=== PATIENT | female | born 1990 | race Caucasian/White ===

== ENCOUNTER 2016-06-27 05:54 | Inpatient (IN) | payer BC ==
[~2016-06-27] VITALS: Ht 154.9 cm; Wt 100.7 kg
[2016-06-27 09:33] LABS: HEMOGLOBIN 12.8 gm/dl (12.3-15.3); RED BLOOD COUNT 4.07 M/UL (4.00-5.10); WHITE BLOOD COUNT 10.7 K/UL (4.5-11.0)
[2016-06-28 03:15] LABS: HEMOGLOBIN 11.3 gm/dl (12.3-15.3)
[2016-06-29] MEDS ORDERED: COLACE 100MG C100 MG PO (15:11)
== END 2016-06-29 15:11 | disposition home or self-care (01) | DRG 766 ==
LOC: GENOP 05:54 → OB 09:09
PROVIDERS: Obstetrics & Gynecology; ADMIT Obstetrics & Gynecology
PROC: 10D00Z1 Extraction of Products of Conception, Low, Open Approach (ICD-10-PCS; principal; 2016-06-27 14:04)
PROC: 3E0234Z Introduction of Serum, Toxoid and Vaccine into Muscle, Percutaneous Approach (ICD-10-PCS; 2016-06-28)
DX: O76 Abnormality in fetal heart rate and rhythm complicating labor and delivery (principal); Z3A.39 39 weeks gestation of pregnancy; Z37.0 Single live birth; O26.893 Other specified pregnancy related conditions, third trimester; R11.2 Nausea with vomiting, unspecified; Z23 Encounter for immunization
CPT/HCPCS: 36415; 82800; 85014; 85018; 85025; 90715; C9113; J0690; J1580; J2270; J2300; J2405; J2550; J2590; J2765; J3430; J7120

== ENCOUNTER 2016-07-25 23:07 | Emergency (ER) | payer OTHER, BC ==
[~2016-07-25 23:07] MED LIST: COLACE 100MG C100 MG PO
[2016-07-26 04:11] LABS: RED BLOOD COUNT 4.52 M/UL (4.00-5.10); WHITE BLOOD COUNT 8.7 K/UL (4.5-11.0)
[2016-07-26 04:42] LABS: BUN/CREATININE RATIO 22 (0-10)
== END 2016-07-26 06:30 | disposition home or self-care (01) ==
LOC: ER1 23:07
PROVIDERS: Physician Assistant
DX: N39.0 Urinary tract infection, site not specified (principal); R10.817 Generalized abdominal tenderness; Z79.899 Other long term (current) drug therapy; Z91.09 Other allergy status, other than to drugs and biological substances
CPT/HCPCS: 36415; 80053; 81001; 82272; 83690; 84703; 85025; 96361; 96374; 96375; 99284; C9113; J2405